=== PATIENT | female | born 2000 | race Caucasian/White ===

== ENCOUNTER 2025-07-24 11:13 | Inpatient (IN) | payer OTHER, SELFPAY ==
[2025-07-24 12:57] VITALS: BMI 39.9
[2025-07-24] MEDS ORDERED: Ketorolac Tromethamine 30 MG (1 mL) VIAL IVP PRN (13:09)
[2025-07-24] MEDS ORDERED: Melatonin 3 MG TAB PO PRN (13:09)
[2025-07-24 14:35] LABS: Hematocrit 38.9 % (36.0-47.0); Hemoglobin 12.6 g/dL (12.0-16.0); Mean Corpuscular Hemoglobin 28.6 pg (27.0-31.0); Mean Corpuscular Volume 88.4 fL (78.0-98.0); Platelet Count 99 10x3/uL (130-400); Red Blood Cell (RBC) Count 4.40 mill/uL (4.20-5.40); White Blood Cell (WBC) Count 11.03 10x3/uL (4.8-10.8)
[2025-07-24 14:47] LABS: ALT (SGPT) 251 U/L (Less than 34); AST (SGOT) 344 U/L (11-34); Albumin 2.1 g/dL (3.1-4.5); Alkaline Phosphatase 280 U/L (40-110); Anion Gap 20 mmol/L (10-20); BUN (Urea Nitrogen) 48 mg/dL (7.0-18.7); Bilirubin, Total 2.4 mg/dL (0.3-1.2); Calc. Creatinine Clearance 39 mL/min (70-130); Calcium 7.5 mg/dL (7.8-10.44); Carbon Dioxide 15 mmol/L (22-29); Chloride 106 mmol/L (98-107); Globulin 3.2 g/dL (2.4-3.5); Glucose 75 mg/dL (70-105); Potassium 3.7 mmol/L (3.5-5.1); Sodium 137 mmol/L (136-145)
[2025-07-24 15:06] LABS: Burr Cells MODERATE= 6-15 cells HPF (0-1); Macrocytosis SLIGHT = 6-15 cells HPF (0-5); Platelet Adequacy Comment Platelets Decreased; Poikilocytosis MODERATE=16-30 cells HPF (0-5); Polychromasia SLIGHT = 2-3 cells HPF (0-2); Smudge Cells 8.0 %
[2025-07-24] MEDS: Acetaminophen 325 MG TAB PO PRN (15:55)
[2025-07-24] MEDS: Albumin 25% 25 GM (100 mL) BOT IVPB SCH (16:30)
[2025-07-24 18:17] LABS: Bacteria/HPF 1+ HPF (None Seen); Glucose, Urine (Dipstick) Normal (Negative); Leukocyte 250 Leu/uL (Negative); Protein, Urine (Dipstick) 30 mg/dL (Neg-Trace); RBC/HPF 0-3 HPF (0-3); Specific Gravity, Urine 1.014 (1.002-1.036); WBC/HPF 21-50 HPF (0-3)
[2025-07-24 18:30] LABS: Sodium, Urine 36.0 mmol/L (Not Available)
[2025-07-24 20:41] LABS: Albumin 2.2 g/dL (3.1-4.5); Anion Gap 15 mmol/L (10-20); BUN (Urea Nitrogen) 49 mg/dL (7.0-18.7); BUN/Creatinine Ratio 13.03; Calc. Creatinine Clearance 39 mL/min (70-130); Calcium 7.4 mg/dL (7.8-10.44); Carbon Dioxide 19 mmol/L (22-29); Chloride 104 mmol/L (98-107); Glucose 107 mg/dL (70-105); Potassium 3.0 mmol/L (3.5-5.1); Sodium 135 mmol/L (136-145)
[2025-07-24] MEDS: cefTRIAXone\\ROCEPHIN 2 GM in Sodium Chloride 0.9% 100 ML IVPB SCH (22:04)
[2025-07-24] MEDS: Famotidine/PF 20 mg/2ml Vial SLOW IVP SCH (22:07)
[2025-07-24] MEDS: Potassium Phosphate 30 MMOL in Sodium Chloride 0.9% 250 ML 250 ML IVPB SCH (22:07)
[2025-07-25] MEDS: Ibuprofen 600 MG TAB PO PRN (00:32)
[2025-07-25 05:59] LABS: CK (CPK) 219 U/L (29-168)
[2025-07-25 06:00] LABS: ALT (SGPT) 193 U/L (Less than 34); AST (SGOT) 258 U/L (11-34); Albumin 2.4 g/dL (3.1-4.5); Alkaline Phosphatase 219 U/L (40-110); Anion Gap 18 mmol/L (10-20); BUN (Urea Nitrogen) 47 mg/dL (7.0-18.7); Bilirubin, Total 2.1 mg/dL (0.3-1.2); Calc. Creatinine Clearance 45 mL/min (70-130); Calcium 7.5 mg/dL (7.8-10.44); Carbon Dioxide 18 mmol/L (22-29); Chloride 105 mmol/L (98-107); Globulin 2.5 g/dL (2.4-3.5); Glucose 91 mg/dL (70-105); Magnesium 1.8 mg/dL (1.6-2.6); Potassium 3.4 mmol/L (3.5-5.1); Sodium 138 mmol/L (136-145)
[2025-07-25 06:01] LABS: #Basophils 0.04 10x3/uL (0.0-0.2); #Eosinophils Less than 0.03 10x3/uL (0.0-0.7); #Monocytes 0.31 10x3/uL (0.11-0.59); #Neutrophils 5.70 10x3/uL (1.40-6.50); %Basophils 0.4 % (0.0-1.0); %Eosinophils 0.1 % (0.0-10.0); %Lymphocytes 34.3 % (21.0-51.0); %Monocytes 3.3 % (0.0-10.0); %Neutrophils 61.1 % (42.0-75.0); Hematocrit 31.7 % (36.0-47.0); Hemoglobin 10.6 g/dL (12.0-16.0); Mean Corpuscular Hemoglobin 28.6 pg (27.0-31.0); Mean Corpuscular Volume 85.4 fL (78.0-98.0); Platelet Count 90 10x3/uL (130-400); Red Blood Cell (RBC) Count 3.71 mill/uL (4.20-5.40); White Blood Cell (WBC) Count 9.33 10x3/uL (4.8-10.8)
[2025-07-25] MEDS: Albumin 25% 25 GM (100 mL) BOT IVPB SCH ×2 (08:21→14:40)
[2025-07-25] MEDS: Potassium Bicarbonate/Cit Ac 20 MEQ TAB PO SCH (08:21)
[2025-07-25] MEDS: Sodium Bicarbonate Tab 325 MG TAB PO SCH (08:21)
[2025-07-25] MEDS: cefTRIAXone\\ROCEPHIN 2 GM in Sodium Chloride 0.9% 100 ML IVPB SCH (08:21)
[2025-07-25] MEDS: Enoxaparin 40 MG (0.4 mL) SYRINGE SC SCH (08:33)
[2025-07-25] MEDS: Electrolyte Replacement Protocol 1 EACH FS ONE (10:50)
[2025-07-25] MEDS: Ondansetron PF 4 MG/2 ML Vial IVP PRN (11:54)
[2025-07-25 13:01] LABS: Hep A IgM AB NONREACTIVE (NonReactive); Hep A IgM S/CO 0.22 S/CO (0-0.79); Hep B Core IgM Index 0.11 S/CO (0-0.79); Hep B Surf Ag NONREACTIVE S/CO (NonReactive); Hep C IgG Ab NONREACTIVE S/CO (NonReactive); Hep C Index 0.07 S/CO (0-0.79)
[2025-07-25] MEDS: Phenol 177 ML BOT PO PRN (20:03)
[2025-07-25] MEDS: Benzocaine/Menthol 1 LOZ LOZ PO PRN (20:03)
[2025-07-25] MEDS: Magnesium Oxide 400 MG TAB PO SCH (20:04)
[2025-07-25] MEDS: Albuterol 2.5 MG (3 mL) NEB NEB PRN (20:56)
[2025-07-26 06:16] LABS: Hematocrit 28.0 % (36.0-47.0); Hemoglobin 9.7 g/dL (12.0-16.0); Mean Corpuscular Hemoglobin 28.9 pg (27.0-31.0); Mean Corpuscular Volume 83.3 fL (78.0-98.0); Platelet Count 80 10x3/uL (130-400); Red Blood Cell (RBC) Count 3.36 mill/uL (4.20-5.40); White Blood Cell (WBC) Count 7.82 10x3/uL (4.8-10.8)
[2025-07-26 06:30] LABS: ALT (SGPT) 209 U/L (Less than 34); AST (SGOT) 282 U/L (11-34); Albumin 2.9 g/dL (3.1-4.5); Alkaline Phosphatase 183 U/L (40-110); Anion Gap 16 mmol/L (10-20); BUN (Urea Nitrogen) 27 mg/dL (7.0-18.7); Bilirubin, Total 2.2 mg/dL (0.3-1.2); Calc. Creatinine Clearance 92 mL/min (70-130); Calcium 7.9 mg/dL (7.8-10.44); Carbon Dioxide 19 mmol/L (22-29); Chloride 106 mmol/L (98-107); Globulin 2.1 g/dL (2.4-3.5); Glucose 116 mg/dL (70-105); Potassium 3.0 mmol/L (3.5-5.1); Sodium 138 mmol/L (136-145)
[2025-07-26 06:44] LABS: Anisocytosis SLIGHT = 6-15 cells HPF (0-5); Platelet Adequacy Comment Platelets Decreased; Polychromasia SLIGHT = 2-3 cells HPF (0-2)
[2025-07-26 07:23] LABS: Magnesium 1.7 mg/dL (1.6-2.6)
[2025-07-26] MEDS: Potassium Bicarbonate/Cit Ac 20 MEQ TAB PO SCH (08:21)
[2025-07-26] MEDS: Magnesium 2 GM/50 ML(in water) 2 GM in Premix 1 BAG IVPB SCH (09:28)
[2025-07-26] MEDS: Azithromycin 500 MG in Sodium Chloride 0.9% 250 ML 250 ML IVPB SCH (10:14)
[2025-07-26] MEDS: Sodium Bicarbonate Tab 325 MG TAB PO SCH (10:46)
[2025-07-26] MEDS: Potassium Chloride 20 MEQ in Premix 1 BAG IVPB SCH (12:42)
[2025-07-26] MEDS ORDERED: Famotidine/PF 20 mg/2ml Vial SLOW IVP SCH (21:00)
[2025-07-26] MEDS: Pantoprazole 40 MG VIAL IVP SCH (21:28)
[2025-07-27 06:24] LABS: #Basophils 0.04 10x3/uL (0.0-0.2); #Eosinophils Less than 0.03 10x3/uL (0.0-0.7); #Monocytes 0.47 10x3/uL (0.11-0.59); #Neutrophils 4.22 10x3/uL (1.40-6.50); %Basophils 0.5 % (0.0-1.0); %Eosinophils 0.1 % (0.0-10.0); %Lymphocytes 43.0 % (21.0-51.0); %Monocytes 5.6 % (0.0-10.0); %Neutrophils 50.2 % (42.0-75.0); Hematocrit 28.2 % (36.0-47.0); Hemoglobin 9.6 g/dL (12.0-16.0); Mean Corpuscular Hemoglobin 28.8 pg (27.0-31.0); Mean Corpuscular Volume 84.7 fL (78.0-98.0); Platelet Count 109 10x3/uL (130-400); Red Blood Cell (RBC) Count 3.33 mill/uL (4.20-5.40); White Blood Cell (WBC) Count 8.41 10x3/uL (4.8-10.8)
[2025-07-27 06:34] LABS: ALT (SGPT) 258 U/L (Less than 34); AST (SGOT) 361 U/L (11-34); Albumin 2.8 g/dL (3.1-4.5); Alkaline Phosphatase 235 U/L (40-110); Anion Gap 15 mmol/L (10-20); BUN (Urea Nitrogen) 15 mg/dL (7.0-18.7); Bilirubin, Total 1.7 mg/dL (0.3-1.2); Calc. Creatinine Clearance 158 mL/min (70-130); Calcium 8.2 mg/dL (7.8-10.44); Carbon Dioxide 21 mmol/L (22-29); Chloride 109 mmol/L (98-107); Globulin 2.3 g/dL (2.4-3.5); Glucose 96 mg/dL (70-105); Potassium 4.4 mmol/L (3.5-5.1); Sodium 141 mmol/L (136-145)
[2025-07-27 06:37] LABS: Iron 86 ug/dL (50-170); Iron Binding Capacity, Total 138 mcg/dL (265-497)
[2025-07-27] MEDS: Azithromycin 250 MG TAB PO SCH (08:15)
[2025-07-27] MEDS ORDERED: Pantoprazole 40 MG VIAL IVP SCH (09:00)
[2025-07-27] MEDS: Vancomycin (BATCH) 2.5 GM in Premix 1 BAG IVPB SCH (14:50)
[2025-07-27 15:36] LABS: Legionella Urinary Ag Negative (Negative); Strep pneumo Urine Ag NEGATIVE (NEGATIVE)
[2025-07-28] MEDS: Vancomycin 1.25 GM / NS 250 ML VIAL-2-BAG IVPB SCH (02:18)
[2025-07-28 06:59] LABS: Hematocrit 29.7 % (36.0-47.0); Hemoglobin 10.0 g/dL (12.0-16.0); Mean Corpuscular Hemoglobin 28.7 pg (27.0-31.0); Mean Corpuscular Volume 85.1 fL (78.0-98.0); Platelet Count 160 10x3/uL (130-400); Red Blood Cell (RBC) Count 3.49 mill/uL (4.20-5.40); White Blood Cell (WBC) Count 9.42 10x3/uL (4.8-10.8)
[2025-07-28 07:08] LABS: Vancomycin, Random 26.9 ug/mL (See Comment)
[2025-07-28 07:10] LABS: ALT (SGPT) 213 U/L (Less than 34); AST (SGOT) 215 U/L (11-34); Albumin 2.8 g/dL (3.1-4.5); Alkaline Phosphatase 216 U/L (40-110); Anion Gap 12 mmol/L (10-20); BUN (Urea Nitrogen) 10 mg/dL (7.0-18.7); Bilirubin, Total 1.2 mg/dL (0.3-1.2); Calc. Creatinine Clearance 195 mL/min (70-130); Calcium 8.3 mg/dL (7.8-10.44); Carbon Dioxide 21 mmol/L (22-29); Chloride 107 mmol/L (98-107); Globulin 2.7 g/dL (2.4-3.5); Glucose 98 mg/dL (70-105); Potassium 4.0 mmol/L (3.5-5.1); Sodium 136 mmol/L (136-145)
[2025-07-28 07:45] LABS: Macrocytosis SLIGHT = 6-15 cells HPF (0-5); Platelet Adequacy Comment Platelets Normal; Polychromasia SLIGHT = 2-3 cells HPF (0-2); Smudge Cells 6.0 %
[2025-07-28 16:36] LABS: HIV (1/2) Antibody/Antigen NONREACTIVE (NonReactive); HIV 1/2 INDEX 0.11 S/CO (<1.00)
[2025-07-28] MEDS: Enoxaparin 40 MG (0.4 mL) SYRINGE SC SCH (20:44)
[2025-07-29 06:56] LABS: Chloride 106 mmol/L (98-107); Potassium 4.0 mmol/L (3.5-5.1); Sodium 136 mmol/L (136-145)
[2025-07-29 06:57] LABS: ALT (SGPT) 162 U/L (Less than 34); AST (SGOT) 123 U/L (11-34); Albumin 2.8 g/dL (3.1-4.5); Alkaline Phosphatase 182 U/L (40-110); Anion Gap 14 mmol/L (10-20); BUN (Urea Nitrogen) 9 mg/dL (7.0-18.7); Bilirubin, Total 0.9 mg/dL (0.3-1.2); Calc. Creatinine Clearance 212 mL/min (70-130); Calcium 8.4 mg/dL (7.8-10.44); Carbon Dioxide 20 mmol/L (22-29); Globulin 3.0 g/dL (2.4-3.5); Glucose 96 mg/dL (70-105)
[2025-07-29 06:58] LABS: Hematocrit 30.0 % (36.0-47.0); Hemoglobin 9.9 g/dL (12.0-16.0); Mean Corpuscular Hemoglobin 28.1 pg (27.0-31.0); Mean Corpuscular Volume 85.2 fL (78.0-98.0); Platelet Count 207 10x3/uL (130-400); Red Blood Cell (RBC) Count 3.52 mill/uL (4.20-5.40); White Blood Cell (WBC) Count 8.66 10x3/uL (4.8-10.8)
[2025-07-29 07:34] LABS: Macrocytosis SLIGHT = 6-15 cells HPF (0-5); Platelet Adequacy Comment Platelets Normal; Polychromasia SLIGHT = 2-3 cells HPF (0-2); RBC Morphology Within Normal Limits; Smudge Cells 4.0 %
[2025-07-29 07:50] VITALS: BP 138/88; TEMP 98.6
[2025-07-30 04:13] LABS: EBV VCA IgM >160.0 U/mL (0.0-35.9); Nuclear AG IgG (EBNA) AB <18.0 U/mL (0.0-17.9)
[2025-07-30 15:48] LABS: Syphilis Antibody Index 0.11 S/CO (<1.00 Non-Reactive)
== END 2025-07-29 11:23 | disposition home or self-care (01) | DRG 871 ==
LOC: T4-B 12:16
PROVIDERS: ADMIT Hospitalist; ATTEND Student in an Organized Health Care Education/Training Program
DX: A40.9 Streptococcal sepsis, unspecified (principal); J18.9 Pneumonia, unspecified organism; B17.9 Acute viral hepatitis, unspecified; N17.9 Acute kidney failure, unspecified; E87.20 Acidosis, unspecified; J45.909 Unspecified asthma, uncomplicated; E86.0 Dehydration; B27.80 Other infectious mononucleosis without complication; E66.9 Obesity, unspecified; E83.39 Other disorders of phosphorus metabolism; E87.6 Hypokalemia; D64.9 Anemia, unspecified; D69.6 Thrombocytopenia, unspecified; E86.9 Volume depletion, unspecified; Y95 Nosocomial condition; Z79.899 Other long term (current) drug therapy
CPT/HCPCS: 36415; 36416; 71046; 74176; 80053; 80202; 81001; 82550; 82570; 82728; 83540; 83550; 83605; 83735; 84100; 84145; 84300; 85025; 86060; 86644; 86645; 86664; 86665; 86705; 86709; 86780; 86803; 87040; 87081; 87324; 87340; 87389; 87449; 87536; 87633; 87798; 87899; 94640; J0456; J0696; J1650; J2405; J2470; J3373; J3475; J3480; J7050; J7120; J7611; P9047